=== PATIENT | male | born 1975 | race Caucasian/White ===

== ENCOUNTER 2017-12-20 12:40 | Emergency (ER) | payer MEDICAID ==
[~2017-12-20] VITALS: Ht 162.6 cm; Wt 100.0 kg
[2017-12-20] MEDS ORDERED: KETOROLAC TROMETHAMINE 30 MG/ML VIAL IM ONE (15:30)
[2017-12-20 16:34] VITALS: BP 124/81
== END 2017-12-20 16:51 | disposition home or self-care (01) ==
LOC: EMS 12:41
DX: S90.31XA Contusion of right foot, initial encounter (principal); F17.210 Nicotine dependence, cigarettes, uncomplicated; W20.8XXA Other cause of strike by thrown, projected or falling object, initial encounter; Y93.89 Activity, other specified; Y92.89 Other specified places as the place of occurrence of the external cause; Y99.8 Other external cause status
CPT/HCPCS: 73630; 96372; 99284; 99406; J1885